=== PATIENT | male | born 1935 | race Caucasian/White ===

== ENCOUNTER → 2021-08-23 | Outpatient (CLI) | payer OTHER ==
[~2021-08-23] VITALS: Ht 175.3 cm; Wt 73.0 kg
[~2021-08-23] MED LIST: ALLOPURINOL 10100 M1 PO; ASA81BEC PO; ATORVASTATIN CA20 MG PO; FINASTERIDE5 MG PO; LEVOTHYROXINE150 MCG PO; NORVASC5 MG PO; OMEPRAZOLE40 MG PO; OXYBUTYNIN 5 MG5 M2 PO; POTASSIUM CHLO10 MEQ PO
[2021-08-23 10:17] LABS: APTT 26.7 Seconds (24.5-32.8); INR 1.05; PROTIME 11.4 Seconds (10.5-12.1)
== END | disposition home or self-care (01) ==
LOC: OR 08:37 → LAB 09:00 → OR 10:04 → EDSTATUS 16:42
PROVIDERS: ATTEND Otolaryngology
DX: Z01.812 Encounter for preprocedural laboratory examination (principal); M95.2 Other acquired deformity of head; I10 Essential (primary) hypertension; E78.5 Hyperlipidemia, unspecified; N40.0 Benign prostatic hyperplasia without lower urinary tract symptoms; E03.9 Hypothyroidism, unspecified; M10.9 Gout, unspecified; Z98.890 Other specified postprocedural states; Z79.899 Other long term (current) drug therapy; Z87.891 Personal history of nicotine dependence; Z85.818 Personal history of malignant neoplasm of other sites of lip, oral cavity, and pharynx; Z20.822 Contact with and (suspected) exposure to COVID-19; Z79.82 Long term (current) use of aspirin